=== PATIENT | male | born 1975 | race Hispanic/Latino ===

== ENCOUNTER 2018-07-12 15:50 | Emergency (ER) | payer SELFPAY ==
[2018-07-12] MEDS ORDERED: Albuterol/Ipratropium 3.0-0.5 MG/3 ML Neb Soln NEB ONE ×2 (16:03→17:08)
[2018-07-12] MEDS ORDERED: methylPREDNISolone Sodium Succinate 125 MG/2 ML SDV IM ONE (16:06)
--- NOTE | 2018-07-12 16:07 | EDM.PDOC ---
ED HPI GENERAL MEDICAL PROBLEM - General Chief Complaint: Respiratory Problem Stated Complaint: ASTHMA Time Seen by Provider: 07/12/18 16:07 Source of Information: Reports: Patient History Limitations: Reports: No Limitations - History of Present Illness INITIAL COMMENTS - FREE TEXT/NARRATIVE: HISTORY AND PHYSICAL: History of present illness: Patient is a 42-year-old male here with complaint of asthma exacerbation. He states that the past 2 days he has had difficulty breathing and nasal congestion. He denies chest pain, cough, wheezing, fevers, chills, nausea, vomiting, diarrhea, abdominal pain. He has been using his Ventolin inhaler the day with little relief. Denies smoking. No significant past medical history other than asthma. Review of systems: As per history of present illness and below otherwise all systems reviewed and negative. Past medical history: As per history of present illness and as reviewed below otherwise noncontributory. Surgical history: As per history of present illness and as reviewed below otherwise noncontributory. Social history: No reported history of drug or alcohol abuse. Family history: As per history of present illness and as reviewed below otherwise noncontributory. Physical exam: General: Patient sitting comfortably in no acute distress and nontoxic appearing HEENT: Atraumatic, normocephalic, pupils reactive, negative for conjunctival pallor or scleral icterus, mucous membranes moist, throat clear, neck supple, nontender, trachea midline. No meningeal signs. Lungs: Breath sounds are diminished throughout with expiratory wheezing, chest nontender. Heart: S1S2, regular, negative for clicks, rubs, or overt murmur. Abdomen: Soft, nondistended, nontender. Negative for masses or hepatosplenomegaly. Negative for costovertebral tenderness. Pelvis: Stable nontender. Genitourinary: Deferred. Rectal: Deferred. Extremities: Atraumatic, negative for cords or calf pain. Neurovascular unremarkable. Neuro: Awake, alert, oriented. Cranial nerves II through XII unremarkable. Cerebellum unremarkable. Motor and sensory unremarkable throughout. Exam nonfocal. Notes: Diagnostics: Chest x-ray, influenza Therapeutics: DuoNeb Solu-Medrol 125mg IM Prescriptions: Medrol dosepak Impression: Asthma exacerbation Plan: 1. Continue using inhaler 1-2 puffs every 4-6 hours as needed and take medrol dosepak as instructed 2. Follow up with primary care provider 3. Return to ED as needed as discussed Definitive disposition and diagnosis as appropriate pending reevaluation and review of above. - Related Data Allergies Allergy/AdvReac Type Severity Reaction Status Date / Time No Known Allergies Allergy Verified 07/12/18 16:32 Home Meds: Home Meds Albuterol [Proventil HFA] 1 puff INH QID PRN 07/12/18 [History] methylPREDNISolone [Medrol] 4 mg PO ASDIRECTED #1 tab.ds.pk 07/12/18 [Rx] Past Medical History Respiratory History: Reports: Asthma - Infectious Disease History Infectious Disease History: Reports: None Social & Family History - Family History Family Medical History: Noncontributory - Tobacco Use Smoking Status *Q: Never Smoker - Recreational Drug Use Recreational Drug Use: No ED ROS GENERAL - Review of Systems Review Of Systems: ROS reveals no pertinent complaints other than HPI. ED EXAM, GENERAL - Physical Exam Exam: See Below (see dictation) Course - Vital Signs Last Recorded V/S: Last Vital Signs Temp 96.7 F 07/12/18 16:00 Pulse 95 07/12/18 16:00 Resp 18 07/12/18 16:00 BP 150/74 H 07/12/18 16:00 Pulse Ox 94 L 07/12/18 17:36 - Orders/Labs/Meds Orders: Active Orders 24 hr Category Date Time Status RT Aerosol Therapy [RC] ASDIRECTED Care 07/12/18 16:03 Active RT Aerosol Therapy [RC] ASDIRECTED Care 07/12/18 17:08 Ordered Meds: Medications Discontinued Medications Generic Name Dose Route Start Last Admin Trade Name Carrie PRN Reason Stop Dose Admin Albuterol/Ipratropium 3 ml 07/12/18 16:03 07/12/18 16:12 Duoneb 3.0-0.5 Mg/3 Ml NEB 07/12/18 16:04 3 ml ONETIME ONE Administration Albuterol/Ipratropium 3 ml 07/12/18 17:08 07/12/18 17:36 Duoneb 3.0-0.5 Mg/3 Ml NEB 07/12/18 17:09 3 ml ONETIME ONE Administration Methylprednisolone Sodium Succinate 125 mg 07/12/18 16:06 07/12/18 16:40 Solu-Medrol IM 07/12/18 16:07 125 mg ONETIME ONE Administration Departure - Departure Time of Disposition: 18:04 Disposition: Home, Self-Care 01 Condition: Good Clinical Impression: Asthma exacerbation - Discharge Information Prescriptions: methylPREDNISolone [Medrol] 4 mg PO ASDIRECTED #1 tab.ds.pk Referrals: PCP,None [Primary Care Provider] - Forms: ED Department Discharge Additional Instructions: The following information is given to patients seen in the emergency department who are being discharged to home. This information is to outline your options for follow-up care. We provide all patients seen in our emergency department with a follow-up referral. The need for follow-up, as well as the timing and circumstances, are variable depending upon the specifics of your emergency department visit. If you don't have a primary care physician on staff, we will provide you with a referral. We always advise you to contact your personal physician following an emergency department visit to inform them of the circumstance of the visit and for follow-up with them and/or the need for any referrals to a consulting specialist. The emergency department will also refer you to a specialist when appropriate. This referral assures that you have the opportunity for follow-up care with a specialist. All of these measure are taken in an effort to provide you with optimal care, which includes your follow-up. Under all circumstances we always encourage you to contact your private physician who remains a resource for coordinating your care. When calling for follow-up care, please make the office aware that this follow-up is from your recent emergency room visit. If for any reason you are refused follow-up, please contact the [facility] at and asked to speak to the emergency department charge nurse. [facility] [address] [place] [id number] [id number] 1. Continue using inhaler 1-2 puffs every 4-6 hours as needed and take medrol dosepak as instructed 2. Follow up with primary care provider 3. Return to ED as needed as discussed - My Orders Last 24 Hours: My Active Orders 07/12/18 16:03 RT Aerosol Therapy [RC] ASDIRECTED 07/12/18 17:08 RT Aerosol Therapy [RC] ASDIRECTED - Assessment/Plan Last 24 Hours: My Active Orders 07/12/18 16:03 RT Aerosol Therapy [RC] ASDIRECTED 07/12/18 17:08 RT Aerosol Therapy [RC] ASDIRECTED
--- NOTE | 2018-07-12 17:07 | CR ---
INDICATION: cough x2 days COMPARISON: None. FINDINGS: Single PA view of the chest demonstrates adequate inflation of the lungs. No focal airspace consolidation, pneumothorax or effusion. Cardiomediastinal silhouette is within normal limits. Normal pulmonary vasculature. Osseous structures are unremarkable. IMPRESSION: Negative single view of the chest. No acute findings. Dictated by Chester Dodge MD @ 07/12/2018 5:06:12 PM Dictated by: Chester Dodge MD @ 07/12/2018 17:06:20 (Electronically Signed)
== END 2018-07-12 18:02 | disposition home or self-care (01) ==
LOC: MW.ED 15:50
DX: J45.901 Unspecified asthma with (acute) exacerbation (principal)
CPT/HCPCS: 71045; 87804; 94640; 96372; 99284; J2930; J7620-GY